=== PATIENT | male | born 1975 | race Caucasian/White ===

== ENCOUNTER 2016-12-31 17:40 | Emergency (ER) | payer OTHER ==
[2016-12-31] MEDS ORDERED: TDAP VACCINE 0.5 ML SUS IM ONE ×2 (18:26→18:27)
[2016-12-31 20:23] VITALS: BP 147/76; PULSE 85; RESP 18; TEMP 96.6; O2SAT 97
== END 2016-12-31 18:39 | disposition home or self-care (01) | DRG 605 ==
LOC: ED 17:40
DX: S61.216A Laceration without foreign body of right little finger without damage to nail, initial encounter (principal)
CPT/HCPCS: 90715; 99283

== ENCOUNTER 2017-10-05 06:54 | Day surgery (SDC) | payer OTHER ==
[2017-10-05] MEDS ORDERED: BUPIVACAINE HCL 0.25% MPF 10 ML SOL INFIL ONE (07:10)
[2017-10-05] MEDS ORDERED: MIDAZOLAM 2 MG/2 ML SOL ONE (07:23)
[2017-10-05] MEDS ORDERED: LIDOCAINE HCL 1% MPF SOL ONE (07:23)
[2017-10-05] MEDS ORDERED: PROPOFOL 10 MG/ML EMU IV ONE (07:23)
[2017-10-05] MEDS ORDERED: FENTANYL 100MCG/2ML SOL ONE ×2 (07:24→09:04)
[2017-10-05] MEDS ORDERED: ONDANSETRON HCL 4 MG/2 ML SOL ONE (08:38)
[2017-10-05] MEDS ORDERED: METOCLOPRAMIDE HYDROCHLORIDE 5 MG/ML SOL ONE (08:38)
[2017-10-05] MEDS ORDERED: DEXAMETHASONE 20 MG/5 ML (4 MG/ML SOL) ONE (08:38)
[2017-10-05] MEDS ORDERED: KETOROLAC TROMETHAMINE 30 MG/ML SOL ONE (09:06)
[2017-10-05 10:14] VITALS: BP 153/83; PULSE 72; RESP 18; TEMP 97.4; O2SAT 96
== END 2017-10-05 10:51 | disposition home or self-care (01) | DRG 563 ==
LOC: SURG 06:54
PROVIDERS: ATTEND Orthopaedic Surgery
DX: S83.231A Complex tear of medial meniscus, current injury, right knee, initial encounter (principal)
CPT/HCPCS: J1100; J1885; J2250; J2405; J2765; J3010; J2001; J2704